=== PATIENT | female | born 1960 | race Caucasian/White ===

== ENCOUNTER → 2020-10-05 | Outpatient (CLI) | payer BC ==
[~2020-10-05] MED LIST: Biotin PO; C-E2/E3 SL; CALC-126 PO; DULA0.75 INJ; EMPA1TAB19 PO; EZET10TA70 PO; FLUT9.9S NS; L.AC1CAP6 PO; LOSA25TA25 PO; MINO50TA2 PO; OMEP-110 PO; PREN1TAB10 PO; PROG100C16 PO; Vitamin c PO; cinsulin PO; fish oil PO; magnesium malate PO
[2020-10-05 14:10] LABS: BASOPHILS % (AUTO) 1 % (0-1); EOSINOPHILS % (AUTO) 2 % (1-7); LYMPHOCYTES % (AUTO) 30 % (22-44); MEAN CORPUSCULAR HEMOGLOBIN 29.7 pg (27.0-34.8); MEAN PLATELET VOLUME 7.4 fL (7.4-10.4); MONOCYTES % (AUTO) 4 % (2-9); NEUTROPHILS % (AUTO) 64 % (42-75); PLATELET COUNT 337 x10^3/uL (130-400); RED BLOOD COUNT 4.96 x10^6/uL (3.82-5.3); RED CELL DISTRIBUTION WIDTH 13.6 % (9.6-15.2)
[2020-10-05 14:11] LABS: MD NO
[2020-10-05 14:23] LABS: ALBUMIN 4.3 g/dL (3.4-5.0); ANION GAP 6 mmol/L (5-15); CALCIUM 9.6 mg/dL (8.5-10.1); CHLORIDE 102 mmol/L (98-107)
[2020-10-05 14:29] LABS: ALANINE AMINOTRANSFERASE 68 U/L (12-78); ALKALINE PHOSPHATASE 86 U/L (45-117); BILIRUBIN,TOTAL 0.4 mg/dL (0.2-1.0); CREATININE 0.75 mg/dL (0.55-1.02); TOTAL PROTEIN 8.4 g/dL (6.4-8.2)
== END | disposition home or self-care (01) ==
LOC: STAR 12:51
PROVIDERS: ATTEND Obstetrics & Gynecology
DX: Z01.818 Encounter for other preprocedural examination (principal); I21.19 ST elevation (STEMI) myocardial infarction involving other coronary artery of inferior wall; N95.0 Postmenopausal bleeding
CPT/HCPCS: 36415; 71046; 80053; 84702; 85025; 93005

== ENCOUNTER 2020-10-11 12:00 | Day surgery (SDC) | payer BC ==
[~2020-10-11] VITALS: Ht 162.6 cm; Wt 63.1 kg
[2020-10-11 12:49] VITALS: BP 135/85
[2020-10-11] MEDS ORDERED: CHLORHEXIDINE 15 ML UDC MM ONE (13:00)
[2020-10-11] MEDS ORDERED: CHLORHEXIDINE 15 ML UDC ONE (13:04)
[2020-10-11] MEDS: LACTATED RINGERS 1,000 ML IV SCH ×2 (13:21→13:22)
[2020-10-11] MEDS ORDERED: MIDAZOLAM 1 MG/ML, 2ML ONE (13:58)
[2020-10-11] MEDS ORDERED: FENTANYL PF 100 MCG/2ML ONE ×2 (13:58→15:52)
[2020-10-11] MEDS ORDERED: OXYTOCIN 10 UNITS/ML, 1ML ONE (14:16)
[2020-10-11] MEDS ORDERED: VASOPRESSIN 20 UNIT/ML, 1ML ONE (14:17)
[2020-10-11] MEDS ORDERED: SODIUM CHLORIDE 0.9% 50 ML ONE (14:18)
[2020-10-11] MEDS ORDERED: OXYcodone 5 MG/5 ML ORAL.SOL UDC PO PRN (14:30)
[2020-10-11] MEDS ORDERED: HYDROmorphone 1 MG/ML, 1ML INJ IVPush PRN (14:30)
[2020-10-11] MEDS ORDERED: HYDROcodone/APAP 7.5-325MG/15ML UDC PO PRN (14:30)
[2020-10-11] MEDS ORDERED: PROMETHAZINE 25 MG/ML, 1ML IVPush PRN (14:30)
[2020-10-11] MEDS ORDERED: PROPOFOL 10 MG/ML, 20ML ONE (15:04)
[2020-10-11] MEDS ORDERED: DEXAMETHASONE 4 MG/ML, 1ML ONE (15:04)
[2020-10-11] MEDS ORDERED: ONDANSETRON 2MG/ML, 2ML ONE (15:04)
[2020-10-11] MEDS ORDERED: OXYcodone 5 MG/5 ML ORAL.SOL UDC ONE (15:53)
[2020-10-11] MEDS: FENTANYL PF 100 MCG/2ML IV PRN ×2 (15:55→16:15)
[2020-10-11] MEDS ORDERED: KETOROLAC 30 MG/1 ML ONE (16:09)
[2020-10-11] MEDS ORDERED: KETOROLAC 30 MG/1 ML IVPush PRN (16:30)
== END 2020-10-11 17:50 | disposition home or self-care (01) ==
LOC: OUT 12:00
PROVIDERS: ATTEND Obstetrics & Gynecology
DX: N95.0 Postmenopausal bleeding (principal); I10 Essential (primary) hypertension; K21.9 Gastro-esophageal reflux disease without esophagitis; Z20.828 Contact with and (suspected) exposure to other viral communicable diseases; Z79.899 Other long term (current) drug therapy; Z88.2 Allergy status to sulfonamides; Z88.8 Allergy status to other drugs, medicaments and biological substances; Z98.51 Tubal ligation status; Z90.49 Acquired absence of other specified parts of digestive tract; Z98.890 Other specified postprocedural states; Z82.49 Family history of ischemic heart disease and other diseases of the circulatory system
CPT/HCPCS: 58558; 82962; 87635; 88305; J1100; J1885; J2250; J2405; J2704; J3010; J7120; J2590

== ENCOUNTER → 2020-11-16 | Outpatient (CLI) | payer BC | END | disposition home or self-care (01) | LOC: OR 11:50 | PROVIDERS: ATTEND Family Medicine | DX: Z20.828 Contact with and (suspected) exposure to other viral communicable diseases (principal) | CPT/HCPCS: 87635 ==

== ENCOUNTER 2020-11-22 12:06 | Day surgery (SDC) | payer BC ==
[~2020-11-22] VITALS: Ht 162.6 cm; Wt 61.5 kg
[2020-11-22 12:47] VITALS: BP 127/80
[2020-11-22] MEDS ORDERED: CHLORHEXIDINE 15 ML UDC ONE (12:53)
[2020-11-22] MEDS ORDERED: LACTATED RINGERS 1,000 ML IV SCH (13:00)
[2020-11-22] MEDS ORDERED: CHLORHEXIDINE 15 ML UDC MM ONE (13:00)
[2020-11-22] MEDS ORDERED: FENTANYL PF 100 MCG/2ML ONE (14:53)
[2020-11-22] MEDS ORDERED: MIDAZOLAM 1 MG/ML, 2ML ONE (14:53)
[2020-11-22] MEDS ORDERED: VASOPRESSIN 20 UNIT/ML, 1ML ONE (15:00)
[2020-11-22] MEDS ORDERED: SODIUM CHLORIDE 0.9% 0 ML ONE (15:01)
[2020-11-22] MEDS ORDERED: PROPOFOL 10 MG/ML, 20ML ONE (15:18)
[2020-11-22] MEDS ORDERED: DEXAMETHASONE 4 MG/ML, 1ML ONE (15:18)
[2020-11-22] MEDS ORDERED: ONDANSETRON 2MG/ML, 2ML ONE (15:18)
[2020-11-22] MEDS ORDERED: ALBUTEROL SULFATE 2.5 MG/3 ML NPPB PRN (15:30)
[2020-11-22] MEDS ORDERED: PROMETHAZINE 25 MG/ML, 1ML IV PRN (15:30)
[2020-11-22] MEDS ORDERED: OXYcodone 5 MG/5 ML ORAL.SOL UDC PO PRN (15:30)
[2020-11-22] MEDS ORDERED: FENTANYL PF 100 MCG/2ML IV PRN (15:30)
[2020-11-22] MEDS ORDERED: HYDROmorphone 2 MG/ML, 1ML IVPush PRN (15:30)
[2020-11-22] MEDS ORDERED: hydrALAzine 20 MG/ML, 1ML IV PRN (15:30)
[2020-11-22] MEDS ORDERED: LABETALOL 5MG/ML, 20ML IV PRN (15:30)
[2020-11-22] MEDS ORDERED: DIAZEPAM 5 MG/ML, 2ML IVPush PRN (15:30)
[2020-11-22] MEDS ORDERED: ACETAMINOPHEN 325 MG TABLET PO PRN (15:30)
[2020-11-22] MEDS ORDERED: KETOROLAC 30 MG/1 ML IV PRN (15:30)
[2020-11-22] MEDS ORDERED: MEPERIDINE/PF 25MG/0.5ML IVPush PRN (15:30)
== END 2020-11-22 17:30 | disposition home or self-care (01) ==
LOC: OUT 12:06
PROVIDERS: ATTEND Obstetrics & Gynecology
DX: N95.0 Postmenopausal bleeding (principal); N84.0 Polyp of corpus uteri; I10 Essential (primary) hypertension; E11.9 Type 2 diabetes mellitus without complications; E78.5 Hyperlipidemia, unspecified; Z79.899 Other long term (current) drug therapy; Z88.2 Allergy status to sulfonamides; Z88.8 Allergy status to other drugs, medicaments and biological substances; Z90.49 Acquired absence of other specified parts of digestive tract; Z98.51 Tubal ligation status; Z98.890 Other specified postprocedural states
CPT/HCPCS: 58558; 82962; 88305; J1100; J2250; J2405; J2704; J3010; J2550